=== PATIENT | male | born 1965 | race Caucasian/White ===

== ENCOUNTER 2022-01-19 01:19 | Emergency (ER) | payer SELFPAY ==
[2022-01-19] MEDS ORDERED: SODIUM BICARBONATE ABBOJECT 50 MEQ/50 ML SYRINGE ONE (01:38)
[2022-01-19] MEDS ORDERED: CALCIUM CHLORIDE ABBOJECT 1000MG/10 ML SYRINGE ONE (01:40)
[2022-01-19] MEDS ORDERED: EPINEPHrine 1 MG/ML AMP ONE ×3 (01:50→01:52)
--- NOTE | 2022-01-19 02:13 | ED Physician Documentation ---
History of Present Illness - Stated complaint Stated Complaint: CARDIAC ARREST, CPR - Chief complaint Chief Complaint: Resp - Additonal information Additional information: Patient is a 56-year-old male presenting to the emergency department in cardiac arrest. No available past medical history in EMR. EMS reports They were called for acute respiratory distress. The patient had apparently flagged down police. EMS reports that he was cyanotic on arrival. We did a cardiac arrest prior to any interventions. EMS reports he was in PEA. 4 rounds of epinephrine given. Further history is unavailable at this time. Review of Systems Unable to obtain: Other (Cardiac arrest) PD PAST MEDICAL HISTORY - Present Medications Home Medications: Ambulatory Orders Medication Instructions Recorded Confirmed Home Medications Unobtainable 01/19/22 01/19/22 [HOME MEDICATIONS UNOBTAINABLE] - Allergies Allergies/Adverse Reactions: Allergies Allergy/AdvReac Type Severity Reaction Status Date / Time Unable to Assess Allergy Verified 01/19/22 02:09 PD ED PE NORMAL - Extremities Extremities: No deformity PD ED PE EXPANDED - General General: Unresponsive - HEENT HEENT: Other (Endotracheal tube in place. Pupils sluggish but reactive.) - Neck Neck: Other (C-collar in place.) - Abdomen Abdomen: Other (Obese abdomen without guarding or rigidity) - Male Male : Other (Within normal limits) Results - EKG (time done) 0156 Rate: Rate (enter#) (123) Rhythm: NSR [place]: RAD Intervals: RBBB Ischemia: Non specific changes, Other (Frequent premature ventricular complexes) Compare to prior EKG: Old EKG unavailable 0207 Rate: Rate (enter#) (156) Rhythm: NSR [place]: RAD Intervals: RBBB Ischemia: Non specific changes Compare to prior EKG: Unchanged from prior EKG Computer interpretation: Disagree with computer 0254 Rate: Rate (enter#) (154) Rhythm: Sinus tachycardia Intervals: Normal [place], RBBB Ischemia: Non specific changes Compare to prior EKG: Changed from prior EKG Computer interpretation: Agree with computer - Labs Labs: Laboratory Tests 01/19/22 01/19/22 01/19/22 01:55 01:55 01:55 WBC 7.6 RBC 4.96 Hgb 13.5 L Hct 46.3 MCV 93.3 MCH 27.2 MCHC 29.2 L RDW 13.5 Plt Count 96 L MPV 11.6 H Neut # (Auto) Not Reportable Lymph # (Auto) Not Reportable [place]roquois # (Auto) Not Reportable Eos # (Auto) Not Reportable Baso # (Auto) Not Reportable Absolute Nucleated RBC Not Reportable Total Counted 100 Band Neuts % (Manual) 6 Abnorm Lymph % (Manual) 2 Metamyelocytes % 2 H Myelocytes % 3 H Nucleated RBC % Not Reportable Neutrophils # (Manual) 2.6 Lymphocytes # (Manual) 4.4 H Monocytes # (Manual) 0.2 Eosinophils # (Manual) 0.0 Basophils # (Manual) 0.0 Differential Comment MANUAL DIFFERENTIAL WBC Morphology NORMAL APPEARANCE Platelet Estimate DECREASED (<130,000) Platelet Morphology NORMAL APPEARANCE RBC Morph Micro Appear NORMAL APPEARANCE Bld Gas Analysis Time Sample Site ABG pH ABG pCO2 ABG pO2 ABG HCO3 ABG Total CO2 ABG O2 Saturation ABG Base Excess Roque Test VBG pH VBG pCO2 VBG pO2 VBG HCO3 VBG Total CO2 VBG O2 Saturation VBG Base Excess Respiration Rate O2 Delivery Device Vent Mode FiO2 Tidal Volume PEEP Sodium 140 Potassium 4.2 Chloride 105 Carbon Dioxide 17 L Anion Gap 18.0 H BUN 23 H Creatinine 1.6 H Estimated GFR (MDRD) 45 L Glucose 489 H Lactic Acid Calcium 10.0 Total Bilirubin 0.8 AST 324 H ALT 314 H Alkaline Phosphatase 79 Troponin I High Sens 318.6 H* Total Protein 4.8 L Albumin 2.7 L Globulin 2.1 Albumin/Globulin Ratio 1.3 Nasal Adenovirus (PCR) Nasal B. parapertussis DNA (PCR) Nasal Coronavir 229E PCR Nasal Coronavir HKU1 PCR Nasal Coronavir NL63 PCR Nasal Coronavir OC43 PCR Nasal Enterovir/Rhinovir PCR Nasal Influenza B PCR Nasal Influenza A PCR Nasal Parainfluen 1 PCR Nasal Parainfluen 2 PCR Nasal Parainfluen 3 PCR Nasal Parainfluen 4 PCR Nasal RSV (PCR) Nasal B.pertussis DNA PCR Nasal C.pneumoniae (PCR) Castillo Human Metapneumo PCR Nasal M.pneumoniae (PCR) Nasal SARS-CoV-2 (PCR) 01/19/22 01/19/22 01/19/22 02:20 02:20 02:45 WBC RBC Hgb Hct MCV MCH MCHC RDW Plt Count MPV Neut # (Auto) Lymph # (Auto) [place] # (Auto) Eos # (Auto) Baso # (Auto) Absolute Nucleated RBC Total Counted Band Neuts % (Manual) Abnorm Lymph % (Manual) Metamyelocytes % Myelocytes % Nucleated RBC % Neutrophils # (Manual) Lymphocytes # (Manual) Monocytes # (Manual) Eosinophils # (Manual) Basophils # (Manual) Differential Comment WBC Morphology Platelet Estimate Platelet Morphology RBC Morph Micro Appear Bld Gas Analysis Time 0249 Sample Site RIGHT BRACHIAL ABG pH 7.12 L* ABG pCO2 53 H ABG pO2 62 L ABG HCO3 16.8 L ABG Total CO2 18.5 L ABG O2 Saturation 85 L* ABG Base Excess -12.7 L Roque Test POSITIVE VBG pH 7.021 L VBG pCO2 57.1 H VBG pO2 71.5 H VBG HCO3 14.4 L VBG Total CO2 16.2 L VBG O2 Saturation 86.6 H VBG Base Excess -16.9 L Respiration Rate 20 O2 Delivery Device VENTILATOR Vent Mode ASSIST/CONTROL FiO2 100.00 Tidal Volume 550 PEEP 5 Sodium Potassium Chloride Carbon Dioxide Anion Gap BUN Creatinine Estimated GFR (MDRD) Glucose Lactic Acid > 10.0 H* Calcium Total Bilirubin AST ALT Alkaline Phosphatase Troponin I High Sens Total Protein Albumin Globulin Albumin/Globulin Ratio Nasal Adenovirus (PCR) Nasal B. parapertussis DNA (PCR) Nasal Coronavir 229E PCR Nasal Coronavir HKU1 PCR Nasal Coronavir NL63 PCR Nasal Coronavir OC43 PCR Nasal Enterovir/Rhinovir PCR Nasal Influenza B PCR Nasal Influenza A PCR Nasal Parainfluen 1 PCR Nasal Parainfluen 2 PCR Nasal Parainfluen 3 PCR Nasal Parainfluen 4 PCR Nasal RSV (PCR) Nasal B.pertussis DNA PCR Nasal C.pneumoniae (PCR) Castillo Human Metapneumo PCR Nasal M.pneumoniae (PCR) Nasal SARS-CoV-2 (PCR) 01/19/22 03:08 WBC RBC Hgb Hct MCV MCH MCHC RDW Plt Count MPV Neut # (Auto) Lymph # (Auto) [place] # (Auto) Eos # (Auto) Baso # (Auto) Absolute Nucleated RBC Total Counted Band Neuts % (Manual) Abnorm Lymph % (Manual) Metamyelocytes % Myelocytes % Nucleated RBC % Neutrophils # (Manual) Lymphocytes # (Manual) Monocytes # (Manual) Eosinophils # (Manual) Basophils # (Manual) Differential Comment WBC Morphology Platelet Estimate Platelet Morphology RBC Morph Micro Appear Bld Gas Analysis Time Sample Site ABG pH ABG pCO2 ABG pO2 ABG HCO3 ABG Total CO2 ABG O2 Saturation ABG Base Excess Roque Test VBG pH VBG pCO2 VBG pO2 VBG HCO3 VBG Total CO2 VBG O2 Saturation VBG Base Excess Respiration Rate O2 Delivery Device Vent Mode FiO2 Tidal Volume PEEP Sodium Potassium Chloride Carbon Dioxide Anion Gap BUN Creatinine Estimated GFR (MDRD) Glucose Lactic Acid Calcium Total Bilirubin AST ALT Alkaline Phosphatase Troponin I High Sens Total Protein Albumin Globulin Albumin/Globulin Ratio Nasal Adenovirus (PCR) NOT DETECTED Nasal B. parapertussis DNA (PCR) NOT DETECTED Nasal Coronavir 229E PCR NOT DETECTED Nasal Coronavir HKU1 PCR NOT DETECTED Nasal Coronavir NL63 PCR NOT DETECTED Nasal Coronavir OC43 PCR NOT DETECTED Nasal Enterovir/Rhinovir PCR NOT DETECTED Nasal Influenza B PCR NOT DETECTED Nasal Influenza A PCR NOT DETECTED Nasal Parainfluen 1 PCR NOT DETECTED Nasal Parainfluen 2 PCR NOT DETECTED Nasal Parainfluen 3 PCR NOT DETECTED Nasal Parainfluen 4 PCR NOT DETECTED Nasal RSV (PCR) NOT DETECTED Nasal B.pertussis DNA PCR NOT DETECTED Nasal C.pneumoniae (PCR) NOT DETECTED Castillo Human Metapneumo PCR NOT DETECTED Nasal M.pneumoniae (PCR) NOT DETECTED Nasal SARS-CoV-2 (PCR) NOT DETECTED Procedures - Central Line Central Line Preparation: Unable to obtain consent Central line location: Right Femoral Central line type: Triple lumen Central line aftercare: Other (Patient went into cardiac arrest during placement of central line. Procedure was aborted and ACLS protocols initiated.) PD MEDICAL DECISION MAKING - ED course Complexity details: re-evaluated patient, d/w career development consultant, other ED course: Patient is 50-year-old male presenting to the emergency department in cardiac arrest. Reportedly flagged down police in acute respiratory distress. Was found to be cyanotic by EMS. Went into PEA arrest prior to any intervention by EMS. 4 rounds of epinephrine given prior to arrival at our hospital. Arrived in active cardiac arrest. Initial rhythm PEA. Chest x-ray obtained negative for pneumothorax or mediastinal widening. ET tube had been placed by paramedics and was confirmed and later documented as 4 cm above the pilar by radiology. Patient was in continuous PEA arrest for approximately his first hour in the emergency department. Multiple rounds of epinephrine, bicarb, calcium, glucose given. IV fluids given. No medical history is available for this patient. 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 It is possible [facility]. Patient had 1 brief episode of return of spontaneous circulation at approximately 0120 hrs. however at approximately 0150 hrs. patient regained spontaneous circulation. From 0150 hrs. to approximately 0400 hrs. patient had continuous repeated episodes of cardiac arrest with return of spontaneous circulation. He seemed to respond well to both epinephrine and bicarbonate. Epinephrine and bicarbonate drips were started in the emergency department. At no point did he demonstrate any rhythm other than PEAWell in cardiac arrest. [id number] ultrasonography initially demonstrated global hypokinesis however on repeat evaluation his cardiac contractility seem to improve. His initial EKG showed a right bundle branch block with frequent premature ventricular complexes and nonspecific findings. Nothing that would constitute STEMI was identified on serial EKGs. His final EKG demonstrated a stable right bundle branch block without identifiable premature ventricular complexes. Attempt was made to place a central line however patient went into cardiac arrest during this procedure and it was aborted. Care was discussed with the evp and chief operating officer at [facility] who graciously agrees to accept the patient. Patient developed hypotensionShortly before transport via [facility] and Levophed was added in addition to his epinephrine drip. He was transferred from our facility by [facility] to [facility] in critical condition. - Critical Care Time(min): 120 Time Includes: Direct patient care, Medical consult Data interpretation: Labs, Pulse ox, ABG, CXR, Cardiac output Procedures included in critical care time: Ventilator mgmt Procedures excluded from critical care time: Central IV Departure - Departure Disposition: 02 Transfer Acute Care Hosp Clinical Impression: Cardiac arrest Condition: Critical Discharge Date/Time: 01/19/22 05:27
[2022-01-19 02:25] LABS: BASOPHILS % (AUTO) 0.9 %; EOSINOPHILS % (AUTO) 2.4 %; HCT - HEMATOCRIT 46.3 % (42.0-52.0); HGB - HEMOGLOBIN 13.5 g/dL (14.0-18.0); LYMPHOCYTES % (AUTO) 54.8 %; MEAN CORPUSCULAR HEMOGLOBIN 27.2 pg (27.0-31.0); MEAN CORPUSCULAR HGB CONC 29.2 g/dL (32.0-36.0); MEAN CORPUSCULAR VOLUME 93.3 fL (80.0-94.0); MEAN PLATELET VOLUME 11.6 fL (7.4-11.4); MONOCYTES % (AUTO) 5.8 %; NEUTROPHILS % (AUTO) 27.2 %; PLT - PLATELET COUNT 96 10^3/uL (130-450); RED BLOOD COUNT 4.96 10^6/uL (4.70-6.10); RED CELL DISTRIBUTION WIDTH 13.5 % (12.0-15.0); WHITE BLOOD COUNT 7.6 x10^3/uL (4.8-10.8)
[2022-01-19 02:29] LABS: VBG BASE EXCESS -16.9 mmol/L (-2 - +2); VBG HCO3 14.4 mmol/L (23-28); VBG OXYGEN SATURATION 86.6 % (60-80); VBG PCO2 57.1 mmHg (41-51); VBG PH 7.021 (7.31-7.41); VBG PO2 71.5 mmHg (25-47); VBG TOTAL CO2 16.2 mmol/L (24-29)
[2022-01-19] MEDS ORDERED: SODIUM BICARBONATE ABBOJECT 50 MEQ/50 ML SYRINGE IVP ONE (02:30)
[2022-01-19] MEDS ORDERED: EPINEPHrine ABBOJECT 1 MG/10 ML SYRINGE IVP ONE (02:30)
[2022-01-19] MEDS ORDERED: EPINEPHrine 1 MG/ML VIAL IV ONE (02:30)
[2022-01-19] MEDS ORDERED: CALCIUM CHLORIDE ABBOJECT 1000MG/10 ML SYRINGE IVP ONE (02:30)
[2022-01-19] MEDS ORDERED: ATROPINE ABBOJECT 1 MG/10 ML SYRINGE IVP ONE (02:30)
[2022-01-19] MEDS ORDERED: DEXTROSE 50% ABBOJECT 25 GM/50 ML SYRINGE IVP ONE (02:30)
[2022-01-19] MEDS ORDERED: LIDOCAINE 2% ABBOJECT 100 MG/5 ML SYRINGE IVP ONE (02:30)
[2022-01-19 02:33] LABS: ABNORMAL LYMPHS % (MANUAL) 2 %; BAND NEUTROPHILS % (MANUAL) 6 %; LYMPHOCYTES # (MANUAL) 4.4 10^3/uL (1.5-3.5); LYMPHOCYTES % (MANUAL) 56 %; METAMYELOCYTES % (MANUAL) 2 %; MONOCYTES # (MANUAL) 0.2 10^3/uL (0.0-1.0); MYELOCYTES % (MANUAL) 3 %; NEUTROPHILS # (MANUAL) 2.6 10^3/uL (1.5-6.6)
[2022-01-19 02:34] LABS: DIFFERENTIAL COMMENT MANUAL DIFFERENTIAL; PLATELET ESTIMATE, MANUAL DECREASED (<130,000) (NORMAL); PLATELET MORPHOLOGY NORMAL APPEARANCE (NORMAL); RBC MORPHOLOGY (MULTIPLE) NORMAL APPEARANCE (NORMAL); WBC MORPHOLOGY (MULTIPLE) NORMAL APPEARANCE (NORMAL)
[2022-01-19] MEDS ORDERED: SODIUM BICARBONATE 150 MEQ in DEXTROSE 5% 1,000 ML IV STA (02:39)
[2022-01-19] MEDS ORDERED: SODIUM BICARBONATE 8.4% 50 MEQ/50 ML VIAL ONE ×2 (02:40→03:56)
[2022-01-19] MEDS ORDERED: DEXTROSE 5% 1,000 ML IV ONE (02:44)
[2022-01-19 02:51] LABS: ABG BASE EXCESS -12.7 mmol/L (-2.0-3.0); ABG HCO3 16.8 mmol/L (22.0-26.0); ABG PCO2 53 mmHg (34-45); ABG PO2 62 mmHg (80-100); ABG TCO2 18.5 MMOL/L (21.0-29.0)
[2022-01-19 02:52] LABS: ABG MODE OF VENTILATION ASSIST/CONTROL; ABG RESPIRATORY RATE 20 b/min; ALLEN TEST POSITIVE
[2022-01-19 02:55] LABS: ABG OXYGEN SATURATION 85 % (94-98); ABG PH 7.12 (7.35-7.45)
[2022-01-19 03:15] LABS: ALBUMIN 2.7 g/dL (3.2-5.5); ALBUMIN/GLOBULIN RATIO 1.3 (1.0-2.2); BILIRUBIN,TOTAL 0.8 mg/dL (0.2-1.0); CREATININE 1.6 mg/dL (0.6-1.2); POTASSIUM 4.2 mmol/L (3.5-5.0); TOTAL PROTEIN 4.8 g/dL (6.7-8.2)
[2022-01-19 04:15] LABS: B. PARAPERTUSSIS- RESP PCR PAN NOT DETECTED; B. PERTUSSIS- RESP PCR PANEL NOT DETECTED; C. PNEUMONIAE- RESP PCR PANEL NOT DETECTED; CORONAVIRUS 229E-RESP PCR NOT DETECTED; CORONAVIRUS HKU1-RESP PCR NOT DETECTED; CORONAVIRUS NL63-RESP PCR NOT DETECTED; CORONAVIRUS OC43-RESP PCR NOT DETECTED; HUMAN METAPNEUMOVIRUS NOT DETECTED; INFLUENZA A- RESP PCR PANEL NOT DETECTED; INFLUENZA B - RESP PCR PANEL NOT DETECTED; M. PNEUMONIAE- RESP PCR PANEL NOT DETECTED; PARAINFLUENZA VIRUS 1 NOT DETECTED; PARAINFLUENZA VIRUS 2 NOT DETECTED; PARAINFLUENZA VIRUS 3 NOT DETECTED; PARAINFLUENZA VIRUS 4 NOT DETECTED; RHINOVIRUS/ENTEROVIRUS NOT DETECTED; RSV- RESP PCR PANEL NOT DETECTED; SARS-CoV-2 -RESP PCR PANEL NOT DETECTED
--- NOTE | 2022-01-19 08:10 | XRAY Report ---
PROCEDURE: Chest for Line Placement INDICATIONS: Line Placement TECHNIQUE: One view of the chest was acquired. COMPARISON: None FINDINGS: Surgical changes and devices: The endotracheal tube is 4 cm above the pilar. Lungs and pleura: No pleural effusions or pneumothorax. Lungs are clear. Mediastinum: Mediastinal contours appear normal. Heart size is normal. Bones and chest wall: No suspicious bony lesions. Overlying soft tissues appear unremarkable. IMPRESSION: No acute cardiopulmonary findings. Endotracheal tube 4 cm above the pilar. These findings are consistent with the overnight interpretation. Reviewed by: Camilla Ardon MD on 01/19/2022 8:08 AM PDT Approved by: Camilla Ardon MD on 01/19/2022 8:08 AM PDT Station ID: [id number]
== END 2022-01-19 05:27 | disposition short-term general hospital (02) ==
LOC: ED 01:19
DX: I46.9 Cardiac arrest, cause unspecified (principal); Z20.822 Contact with and (suspected) exposure to COVID-19
CPT/HCPCS: 36415; 36556; 36600; 51702; 80053; 82803; 83605; 84484; 85025; 87633; 92950; 93005; 94002; 96365; 96366; 96375; 96376; 99291; 99292; J0171; 94770

== ENCOUNTER → 2022-01-19 | Outpatient (CLI) | payer SELFPAY | END | disposition critical access hospital (66) | LOC: EMS 01:06 | DX: I46.9 Cardiac arrest, cause unspecified (principal) | CPT/HCPCS: A0425; A0433 ==